=== PATIENT | male | born 1990 | race Caucasian/White ===

== ENCOUNTER 2021-04-20 17:47 | Emergency (ER) | payer SELFPAY ==
[~2021-04-20] VITALS: Ht 188 cm; Wt 86.2 kg
[2021-04-20] MEDS ORDERED: LORAZEPAM 0.5 MG TABLET PO ONE (18:15)
[2021-04-20] MEDS ORDERED: MAG HYDROX/AL HYDROX/SIMETH 30 ML LIQUID UDC PO ONE (18:15)
[2021-04-20] MEDS ORDERED: FAMOTIDINE. 20 MG/2 ML VIAL IV ONE ×2 (18:15→18:30)
[2021-04-20 18:28] LABS: HEMATOCRIT 41.5 % (36.7-47.1); MEAN CORPUSCULAR HEMOGLOBIN 31.9 uug (23.8-33.4); MEAN CORPUSCULAR VOLUME 94.1 fL (73.0-96.2); PLATELET COUNT (AUTO) 248 K/uL (152-348)
[2021-04-20] MEDS ORDERED: LORAZEPAM 0.5 MG TABLET ONE (18:30)
[2021-04-20] MEDS ORDERED: MAG HYDROX/AL HYDROX/SIMETH 30 ML LIQUID UDC ONE (18:30)
[2021-04-20 18:31] LABS: CREATININE 0.9 mg/dL (0.6-1.3); POTASSIUM 3.8 mmol/L (3.5-5.1)
--- NOTE | 2021-04-20 18:36 | NUR ---
PT IS IN ROOM #1B. DR ANTOINE EVALUATED THE PT.
--- NOTE | 2021-04-20 19:05 | NUR ---
RECEIVED SBAR REPORT FROM ELOISE ONEAL. PT NOTED TO BE IN BED AWAKE A/O X4, NO SOB OR LABORED BREATHING. DENIES ANY PAIN/DISCOMFORT. CALL LIGHT WITHIN EASY REACH. BED IN LOWEST POSITION FOR SAFETY PRECAUTIONS.
--- NOTE | 2021-04-20 19:49 | NUR ---
Patient discharged to home in stable condition. Written and verbal after care instructions given. Patient verbalizes understanding of instructions. Stressed follow up or return to ER for worsening s/s. No changes in LOC. Denies any pain/discomfort upon discharge. Steady gait.
[2021-04-20 19:51] VITALS: BP 122/73
== END 2021-04-20 19:51 | disposition home or self-care (01) ==
LOC: ER 17:53
DX: R07.89 Other chest pain (principal); F41.9 Anxiety disorder, unspecified
CPT/HCPCS: 36415; 71045; 80048; 84484; 85025; 93005; 96374; 99285; J3490; 70030-TC; A4663